=== PATIENT | male | born 1985 | race American Indian/Alaskan Native ===

== ENCOUNTER 2019-07-17 08:54 | Emergency (ER) | payer SELFPAY ==
[2019-07-17] MEDS ORDERED: LORazepam 2 MG/ML VIAL ONE (09:26)
[2019-07-17] MEDS ORDERED: HALOPERIDOL LACTATE 5 MG/1 ML INJ ONE (09:26)
[2019-07-17] MEDS ORDERED: LORazepam 2 MG/ML VIAL IV ONE (09:28)
[2019-07-17] MEDS ORDERED: DIPHtheria,PERTUSSIS(ACELL),TETANUS VACCINE/PF 0.5 ML VIAL IM ONE (09:32)
[2019-07-17] MEDS ORDERED: HALOPERIDOL LACTATE 5 MG/1 ML INJ IM PRN (09:33)
[2019-07-17] MEDS ORDERED: LORazepam 2 MG/ML VIAL IM PRN (09:33)
[2019-07-17] MEDS: SODIUM CHLORIDE 0.9% IRR 500 ML BOTTLE IR ONE ×3 (09:40→12:24)
[2019-07-17] MEDS: LIDOCAINE 2%/EPINEPHRINE 1:200,000 VIAL (20 ML) INFILTRATI ONE ×2 (09:42→12:24)
[2019-07-17] MEDS ORDERED: POVIDONE-IODINE OINTMENT 28.35 GM TP SCH (10:00)
[2019-07-17 10:35] LABS: Hematocrit 39.8 % (35.5-45.6); Hemoglobin 13.9 gm/dl (11.8-15.2)
[2019-07-17 10:56] LABS: BUN/Creatinine Ratio 12; Blood Urea Nitrogen 11 mg/dL (9-20); Calcium 9.5 mg/dL (8.4-10.2); Hemolysis Index 11
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
[2019-07-17] MEDS ORDERED: ceFAZolin/NS 1 GM/50 ML 1 GM/50 ML BAG IV ONE (11:30)
[2019-07-17] MEDS ORDERED: BACITRACIN ZINC OINT 28.4 GM TP SCH (11:30)
--- NOTE | 2019-07-17 11:50 | Cat Scan Report ---
CTA RIGHT UPPER EXTREMITY WITH IV CONTRAST INDICATION: Right arm laceration. TECHNIQUE: Axial CT images were obtained through the right upper extremity after injection of 100 mL Omnipaque 3 50 IV contrast. 3 plane MIP reconstructions were produced. All CT scans at this location are performe d using CT dose reduction for ALARA by means of automated exposure control. COMPARISON: None available. FINDINGS: There is normal opacification throughout the right upper extremity arteries without evidence of disse ction or occlusion. There is no appreciable arterial extravasation. There is small amount of subcutaneous air in the anterior right arm in the region of the lower upper arm and in the elbow with small amount of air in the biceps muscle belly. There is no fracture or acu te osseous abnormality. IMPRESSION: No evidence of acute arterial injury in the right upper extremity. Signer Name: Karthik Horn MD Signed: 07/17/2019 11:46 AM Workstation Name: [id number]
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
[2019-07-17] MEDS ORDERED: SODIUM CHLORIDE IRRI 500 ML 500 ML IR ONE (12:21)
[2019-07-17] MEDS ORDERED: LIDOCAINE 2%/EPINEPHRINE 1:200,000 VIAL (20 ML) INFILTRATI ONE (12:22)
[2019-07-17 18:45] VITALS: BP 129/83
[2019-07-17] MEDS ORDERED: oxyCODONE /ACETAMINOPHEN 5-325MG TAB PO ONE (18:54)
== END 2019-07-17 19:50 | disposition home or self-care (01) ==
LOC: ED 08:54
DX: S41.111A Laceration without foreign body of right upper arm, initial encounter (principal); S46.221A Laceration of muscle, fascia and tendon of other parts of biceps, right arm, initial encounter; F10.129 Alcohol abuse with intoxication, unspecified; Z21 Asymptomatic human immunodeficiency virus [HIV] infection status; F17.200 Nicotine dependence, unspecified, uncomplicated; Z79.899 Other long term (current) drug therapy; X58.XXXA Exposure to other specified factors, initial encounter; Y93.89 Activity, other specified; Y92.89 Other specified places as the place of occurrence of the external cause; Y99.8 Other external cause status
CPT/HCPCS: 12002; 12042; 36415; 70450; 72125; 73206; 80048; 82550; 82962; 85014; 85018; 85049; 90471; 90715; 96365; 96372; 96375; 99285; J0690; J1630; J2060; Q9967; 80320; G0480